=== PATIENT | female | born 1960 | race Caucasian/White ===

== ENCOUNTER 2020-10-07 19:01 | Emergency (ER) | payer MEDICAID ==
[~2020-10-07] VITALS: Ht 154.9 cm; Wt 56.8 kg
[~2020-10-07 19:01] MED LIST: CYCL-394 PO; NAPR-232 PO
[2020-10-07 19:13] VITALS: BP 133/73
[2020-10-07] MEDS ORDERED: ketorolac trometh. 30mg/ml inj. IM ONE (21:35)
[2020-10-07] MEDS ORDERED: ACET-2615 PO (21:50)
[2020-10-07] MEDS ORDERED: CYCL-1 PO (21:50)
== END 2020-10-07 22:59 | disposition home or self-care (01) ==
LOC: ER 19:01
DX: S16.1XXA Strain of muscle, fascia and tendon at neck level, initial encounter (principal); S13.4XXA Sprain of ligaments of cervical spine, initial encounter; Z88.0 Allergy status to penicillin; Z79.899 Other long term (current) drug therapy; V69.59XA Passenger in heavy transport vehicle injured in collision with other motor vehicles in traffic accident, initial encounter; Y93.89 Activity, other specified; Y92.413 State road as the place of occurrence of the external cause; Y99.8 Other external cause status
CPT/HCPCS: 72125; 96372; 99284; J1885; 99285

== ENCOUNTER 2024-05-17 07:20 | Day surgery (SDC) | payer MEDICAID ==
[~2024-05-17] VITALS: Ht 154.9 cm; Wt 55.0 kg
[~2024-05-17 07:20] MED LIST changes: +CHOL20002 PO; -CYCL-394 PO; +HYDR-3972 PO; -NAPR-232 PO
[2024-05-17 07:42] VITALS: BP 125/58; PULSE 64; RESP 16
[2024-05-17] MEDS ORDERED: LIDOcaine 2% Viscous 15ml cup ONE (08:04)
[2024-05-17] MEDS ORDERED: simethicone 40mg/0.6ml oral drops 30ml ONE (08:15)
[2024-05-17] MEDS ORDERED: MIDAZolam 1 MG/ML 5ML VIAL ONE (08:27)
[2024-05-17] MEDS ORDERED: fentaNYL/PF 50MCG/1 ML 2ML syringe ONE (08:27)
[2024-05-17] MEDS ORDERED: diphenhydrAMINE 50 mg/ml inj ONE (08:52)
[2024-05-17 09:10] VITALS: BP 131/57; PULSE 50; RESP 17; O2SAT 99
[2024-05-17 09:20] VITALS: BP 120/61; PULSE 52; RESP 18; O2SAT 98
[2024-05-17 09:30] VITALS: BP 112/56; PULSE 50; RESP 16; O2SAT 96
[2024-05-17 09:40] VITALS: BP 125/67; PULSE 55; RESP 14; O2SAT 98
== END 2024-05-17 09:51 | disposition home or self-care (01) ==
LOC: GI LAB 07:20
PROVIDERS: ATTEND Internal Medicine Gastroenterology
DX: K52.9 Noninfective gastroenteritis and colitis, unspecified (principal); K57.30 Diverticulosis of large intestine without perforation or abscess without bleeding; B96.81 Helicobacter pylori [H. pylori] as the cause of diseases classified elsewhere; Z80.0 Family history of malignant neoplasm of digestive organs; K29.50 Unspecified chronic gastritis without bleeding; K30 Functional dyspepsia; R11.2 Nausea with vomiting, unspecified
CPT/HCPCS: 43239; 45380; 99152; 99153; J1200; J2250; J3010; J7030; Z7512; A4620

== ENCOUNTER 2024-07-10 09:04 | Day surgery (SDC) | payer MEDICAID ==
[~2024-07-10] VITALS: Ht 154.9 cm; Wt 54.5 kg
[~2024-07-10 09:04] MED LIST changes: +ASPI-611 PO
[2024-07-10 10:00] VITALS: BP 141/60; PULSE 63; RESP 11
[2024-07-10] MEDS ORDERED: propofol 10mg/ml 20ml vial IV ONE (10:02)
[2024-07-10 10:40] VITALS: BP 127/68; PULSE 65; RESP 19; O2SAT 99
[2024-07-10 10:50] VITALS: BP 126/56; PULSE 54; RESP 56; O2SAT 100
[2024-07-10 11:00] VITALS: BP 132/59; PULSE 64; RESP 17; O2SAT 100
[2024-07-10 11:10] VITALS: BP 129/70; PULSE 57; RESP 15; O2SAT 99
== END 2024-07-10 11:10 | disposition home or self-care (01) ==
LOC: GI LAB 09:04
PROVIDERS: ATTEND Internal Medicine Gastroenterology
DX: R19.4 Change in bowel habit (principal); K57.30 Diverticulosis of large intestine without perforation or abscess without bleeding; Z87.891 Personal history of nicotine dependence; Z88.0 Allergy status to penicillin; Z86.73 Personal history of transient ischemic attack (TIA), and cerebral infarction without residual deficits; Z79.82 Long term (current) use of aspirin; Z80.0 Family history of malignant neoplasm of digestive organs
CPT/HCPCS: 45378; J2704; J7030; Z7512; A4620